=== PATIENT | male | born 1990 | race Two or more races ===

== ENCOUNTER 2022-11-15 04:51 | Emergency (ER) | payer OTHER ==
[~2022-11-15] VITALS: Ht 185.4 cm; Wt 108.9 kg
[2022-11-15] MEDS ORDERED: CIPRO500 MG PO (07:51)
[2022-11-15] MEDS ORDERED: PYRIDIUM DS200 MG PO (07:51)
== END 2022-11-15 08:08 ==
LOC: ER 04:51
DX: N30.81 Other cystitis with hematuria (principal)